=== PATIENT | female | born 1955 | race Caucasian/White ===

== ENCOUNTER → 2020-05-26 08:26 | Outpatient (CLI) | payer MEDICAID, SELFPAY ==
--- NOTE | 2020-05-26 08:33 | XR_ITS ---
PROCEDURE: XR ANKLE WT BEARING RT MIN 3V CLINICAL INDICATION: pain COMPARISON: CR ANKL3 ANKLE-LT-3 VIEWS from 01/09/2016 CR ANKL3 ANKLE-LT-3 VIEWS from 01/24/2016 CR ANKL3 ANKLE-LT-3 VIEWS from 02/21/2016 FINDINGS: There is minimal hypertrophic changes at the distal tibia and fibula. The ankle mortise is preserved. The talar dome has an unremarkable appearance. IMPRESSION: Minimal degenerative changes, no acute finding Dictated by: George Hilliard MD 05/26/2020 16:43 George Hillaird MD in [facility] 05/26/2020 16:43
--- NOTE | 2020-05-26 08:33 | XR_ITS ---
PROCEDURE: XR FOOT WT BEARING LT 3V CLINICAL INDICATION: pain COMPARISON: No exams were available for comparison FINDINGS: Status post ankle replacement. Mild osteoarthritic changes are present at the talonavicular joint with borderline pes planus. No fracture or dislocation. No lytic or blastic change IMPRESSION: Status post ankle replacement. Borderline pes planus with mild osteoarthritis of the talonavicular joint Dictated by: George Hilliard MD 05/26/2020 16:43 George Hilliard MD in [facility] 05/26/2020 16:43
--- NOTE | 2020-05-26 08:33 | XR_ITS ---
PROCEDURE: XR ANKLE WT BEARING LT MIN 3V CLINICAL INDICATION: pain Follow-up surgery COMPARISON: CR ANKL3 ANKLE-LT-3 VIEWS from 01/09/2016 CR ANKL3 ANKLE-LT-3 VIEWS from 01/24/2016 CR ANKL3 ANKLE-LT-3 VIEWS from 02/21/2016 CR ANKL3 ANKLE-LT-3 VIEWS from 03/27/2016 FINDINGS: Status post ankle replacement with good alignment. Medial bone plate is present at the distal tibia. There is some bowing of the 2nd from cortical screw within the bone plate. This is not significantly changed. No screw fracture is evident. There are degenerative changes at the distal tib fib region and at the ankle joint at the distal fibula and tibia. Bony hypertrophy is present the distal tibia head appears somewhat greater compared to 03/27/2016. IMPRESSION: Status post ankle replacement with creasing bony hypertrophy with good alignment. Dictated by: George Hilliard MD 05/26/2020 16:42 George Hilliard MD in [facility] 05/26/2020 16:42
== END ==
PROVIDERS: PCP Nurse Practitioner Family; Visit Provider Podiatrist
DX: M25.572 Pain in left ankle and joints of left foot (principal); M25.571 Pain in right ankle and joints of right foot
CPT/HCPCS: 73610; 73630

== ENCOUNTER → 2020-06-01 07:15 | Outpatient (CLI) | payer MEDICAID, SELFPAY ==
--- NOTE | 2020-06-01 07:16 | CT_ITS ---
PROCEDURE: CT ANKLE LT WO CON CLINICAL HISTORY: SPV for total ankle replacement COMPARISON: CR XR ANKLE WT BEARING LT MIN 3V from 05/26/2020 TECHNIQUE: Axial images obtained with sagittal and coronal reformats. All CT scans at the facility use one or more dose reduction, viz: automated exposure control, ma/kV adjustment per patient size (including targeted exams where dose is matched to indication, i.e. head), or iterative reconstruction technique. FINDINGS: The axial images are obtained from the distal femur through the foot. Artifact is present from metallic hardware at the ankle. There has been and ankle replacement with a metallic prosthesis at the tibial plafond and at the talar dome. Anterior bone plate is present at the distal tibia. There is fusion of the tibial talar joint distally. Osteoarthritic changes are present at the talofibular region and at the medial malleolar talar region. There are mild osteoarthritic changes of the knee. Mild osteoarthritic changes are present at the posterior and anterior subtalar joint as well as the talonavicular joint. No acute fracture or dislocation. No bony destructive process. No obvious soft tissue mass. IMPRESSION: Good alignment status post ankle replacement with osteoarthritic changes of the ankle and foot as described above Dictated by: George Hilliard MD 06/02/2020 08:56 George Hilliard MD in [place] 06/02/2020 08:56
--- NOTE | 2020-06-01 07:57 | XR_ITS ---
PROCEDURE: XR DEXA AXIAL SKELETON CLINICAL HISTORY: eval. bone density COMPARISON: No exams were available for comparison FINDINGS: The right hip BMD is 0.692 with a T-score of -1.4. The left hip BMD is 0.741 with a T-score of -1.0. The lumbar spine BMD is 1.169 with a T-score of 1.1. IMPRESSION: This patient is considered osteopenic according to the World Health Organization criteria. Bone density is between 10 and 25 percent below young normal. Fracture risk is moderate. Treatment is advised. Based on these results a follow-up exam is recommended in 2 year. Dictated by: George Hilliard MD 06/01/2020 19:29 George Hilliard MD in [place] 06/02/2020 07:29
--- NOTE | 2020-06-01 08:00 | US_ITS ---
APPROVED REPORT Exam Type: Lower Extremity Segmental Pressures Beer Coil Cleaner: Lily Mccrary RVT Indications DM,PT IS PRE-OP FOR HARDWARE REPLACEMENT RT ANKLE Risk Factors Hypertension Diabetes History of Smoking Pressures/Indices Right Indices Left Indices Brachial 166.00 mmHg Brachial 159.00 mmHg Low Thigh 173.00 mmHg 1.04 Low Thigh 145.00 mmHg 0.87 Calf 168.00 mmHg 1.01 Calf 190.00 mmHg 1.14 Ankle(PT) 185.00 mmHg 1.11 Ankle(PT) 195.00 mmHg 1.17 Ankle(DP) 151.00 mmHg 0.91 Ankle(DP) 168.00 mmHg 1.01 Digit 106.00 mmHg 0.64 Digit 154.00 mmHg 0.93 Findings RT EDITH:1.11 LT EDITH:1.17 RT TBI:0.64 LT TBI:0.93 NORMAL PULSES BILATERAL NORMAL WAVEFORMS BILATERAL Conclusion RT EDITH:1.11 LT EDITH:1.17 RT TBI:0.64 LT TBI:0.93 NORMAL PULSES BILATERAL NORMAL WAVEFORMS BILATERAL Normal appearing resting noninvasive lower extremity arterial study. Electronically signed by : George Hilliard MD 06/01/2020 16:52:01
== END ==
PROVIDERS: PCP Nurse Practitioner Family; Visit Provider Podiatrist
DX: M19.072 Primary osteoarthritis, left ankle and foot (principal); Z96.662 Presence of left artificial ankle joint; Z96.9 Presence of functional implant, unspecified; M85.80 Other specified disorders of bone density and structure, unspecified site; R09.89 Other specified symptoms and signs involving the circulatory and respiratory systems
CPT/HCPCS: 73700; 77080; 93923

== ENCOUNTER → 2020-06-01 07:47 | Outpatient (CLI) | payer MEDICAID, SELFPAY ==
[2020-06-01 08:29] LABS: Basophils # 0.1 K/mm3 (0-0.2); Basophils % 0.8 % (0.1-2.0); Eosinophils # 0.2 K/mm3 (0.0-0.4); Eosinophils % 3.1 % (0.1-12.0); Hematocrit 42.5 % (37.0-47.0); Hemoglobin 13.2 g/dL (12.2-16.2); Lymphocytes % 31.3 % (10-50); Mean Corpuscular Volume 90.2 fl (81-99); Mean Platelet Volume 7.4 fl (7.4-10.4); Monocytes # 0.3 K/mm3 (0.1-1.0); Monocytes % 4.1 % (1.7-9.3); Neutrophils # 3.8 K/mm3 (1.8-7.8); Neutrophils % 60.6 % (37.0-80.0); Platelet Count 430 K/mm3 (142-424); Red Blood Count 4.71 M/mm3 (4.20-5.40); Red Cell Distribution Width 13.3 % (11.5-17.5); White Blood Count 6.3 K/mm3 (4.8-10.8)
[2020-06-01 09:00] LABS: Erythrocyte Sedimentation Rate 10 mm/hr (0-30)
[2020-06-01 10:03] LABS: Hemoglobin A1C 7.3 % (4.0-6.0)
[2020-06-01 12:19] LABS: Chloride 100 mmol/L (98-107); Sodium 138 mmol/L (136-145)
[2020-06-01 12:20] LABS: Potassium 5.5 mmoL/L (3.5-5.1)
[2020-06-01 12:22] LABS: Alanine Aminotransferase 35 U/L (12-78); Albumin Level 4.3 g/dl (3.5-5.0); Albumin/Globulin Ratio 1.7 (1.1-1.8); Alkaline Phosphatase 98 U/L (38-126); Anion Gap 17.5 mEq/L (5-15); Aspartate Amino Transferase 28 U/L (14-36); Bilirubin,Total 0.4 mg/dl (0.2-1.3); Blood Urea Nitrogen 16 mg/dl (7-17); Carbon Dioxide 26 mmol/L (22.0-30.0); Estimated Glomerular Filt Rate 85 ml/min (>60); GFR (African American) 103 ML/MIN (>60); Globulin 2.6 g/dL (1.3-3.2); Total Protein,Serum 6.9 g/dl (6.3-8.2)
[2020-06-01 12:23] LABS: Calcium 10.2 mg/dl (8.4-10.2); Glucose 243 mg/dl (74-100)
[2020-06-01 12:28] LABS: C-Reactive Protein 2.9 mg/L (0-4)
[2020-06-07 09:59] LABS: 1,25 Dihydroxy Vitamin D 32 pg/mL (.); 1,25-Dihydroxy, Vitamin D-2 <10 pg/mL (.); 1,25-Dihydroxy, Vitamin D-3 32 pg/mL (.)
== END ==
PROVIDERS: Visit Provider Podiatrist
DX: M19.072 Primary osteoarthritis, left ankle and foot (principal); R73.03 Prediabetes
CPT/HCPCS: 36415; 80053; 82652; 83036; 85025; 85651; 86140

== ENCOUNTER → 2020-07-19 08:03 | Outpatient (CLI) | payer MEDICAID, SELFPAY ==
--- NOTE | 2020-07-19 08:06 | XR_ITS ---
PROCEDURE: XR CHEST 2V CLINICAL HISTORY: preop testing..htn..copd COMPARISON: CR CXR CHEST(2 VIEWS-NOT PORTABLE) from 11/23/2015 FINDINGS: The cardiomediastinal silhouette and pulmonary vascularity are within normal limits. The lungs are clear without infiltrates, suspicious nodules, or pleural effusions. Nodular density is present projecting over the T9-T10 interspace on the lateral view not readily apparent on the previous study. This could be due to granuloma which is not well demonstrated previously. May be in the left lower lobe. Follow-up may confirm. No acute bony abnormalities. IMPRESSION: No acute finding. Possible left lower lobe granuloma which may be confirmed with follow-up. Dictated by: George Hilliard MD 07/19/2020 17:04 George Hilliard MD in [place] 07/19/2020 17:04
--- NOTE | 2020-07-19 08:41 | ECG_ITS ---
APPROVED REPORT Exam: Resting ECG HR:47 bpm ECG Measurements Heart Rate 47 AXES NM 170 P 19 QRSd 86 QRS 17 QT 442 T 42 QTc 391 Conclusion Marked sinus bradycardia Abnormal ECG Electronically signed by : Zbigniew Canela, 07/20/2020 07:25:54
[2020-07-19 09:31] LABS: Basophils # 0.1 K/mm3 (0-0.2); Basophils % 1.1 % (0.1-2.0); Eosinophils # 0.2 K/mm3 (0.0-0.4); Hematocrit 45.1 % (37.0-47.0); Hemoglobin 14.5 g/dL (12.2-16.2); Lymphocytes % 33.3 % (10-50); Mean Corpuscular HGB Conc 32.2 g/dL (31.8-35.4); Mean Corpuscular Hemoglobin 28.1 pg (27.0-31.2); Mean Platelet Volume 7.9 fl (7.4-10.4); Monocytes # 0.3 K/mm3 (0.1-1.0); Monocytes % 4.5 % (1.7-9.3); Neutrophils # 3.5 K/mm3 (1.8-7.8); Neutrophils % 58.1 % (37.0-80.0); Platelet Count 521 K/mm3 (142-424); Red Blood Count 5.18 M/mm3 (4.20-5.40); Red Cell Distribution Width 13.6 % (11.5-17.5); White Blood Count 6.1 K/mm3 (4.8-10.8)
[2020-07-19 11:34] LABS: Alanine Aminotransferase 30 U/L (12-78); Albumin Level 4.9 g/dl (3.5-5.0); Albumin/Globulin Ratio 1.8 (1.1-1.8); Alkaline Phosphatase 115 U/L (38-126); Anion Gap 18.5 mEq/L (5-15); Aspartate Amino Transferase 27 U/L (14-36); Bilirubin,Total 0.4 mg/dl (0.2-1.3); Blood Urea Nitrogen 16 mg/dl (7-17); Calcium 10.3 mg/dl (8.4-10.2); Carbon Dioxide 26 mmol/L (22.0-30.0); Chloride 101 mmol/L (98-107); Estimated Glomerular Filt Rate 101 ml/min (>60); GFR (African American) 123 ML/MIN (>60); Globulin 2.8 g/dL (1.3-3.2); Glucose 148 mg/dl (74-100); Potassium 4.5 mmoL/L (3.5-5.1); Sodium 141 mmol/L (136-145); Total Protein,Serum 7.7 g/dl (6.3-8.2)
[2020-07-21 14:03] LABS: T4 (Thyroxine) 6.3 ug/dl (5.53-11.0); Triiodothryronine (T3) Uptake 32 % (23.5-40.5)
[2020-07-21 14:16] LABS: Thyroid Stimulating Hormone 3.33 uIU/mL (0.465-4.68)
== END ==
PROVIDERS: PCP Nurse Practitioner Family; Visit Provider Podiatrist
DX: Z01.818 Encounter for other preprocedural examination (principal); M19.072 Primary osteoarthritis, left ankle and foot
CPT/HCPCS: 36415; 71046; 80053; 83036; 84436; 84443; 84479; 85025; 93005

== ENCOUNTER → 2020-07-26 09:23 | Outpatient (CLI) | payer MEDICAID, SELFPAY ==
--- NOTE | 2020-07-26 09:49 | ECG_ITS ---
APPROVED REPORT Exam: Resting ECG HR:75 bpm ECG Measurements Heart Rate 75 AXES TX 168 P 21 QRSd 78 QRS 29 QT 366 T 54 QTc 408 Conclusion Normal sinus rhythm Normal ECG Electronically signed by : Zbigniew Canela, 07/26/2020 19:48:17
== END ==
PROVIDERS: PCP Nurse Practitioner Family; Visit Provider Podiatrist
DX: R00.1 Bradycardia, unspecified (principal)
CPT/HCPCS: 93005

== ENCOUNTER → 2020-08-01 09:10 | Outpatient (CLI) | payer MEDICAID, SELFPAY ==
[2020-08-01 10:58] LABS: Coronavirus 19 IgG Antibody Negative (Negative); Coronavirus 19 IgM Antibody Negative (Negative)
== END ==
PROVIDERS: Visit Provider Podiatrist
DX: Z01.818 Encounter for other preprocedural examination (principal); M19.072 Primary osteoarthritis, left ankle and foot
CPT/HCPCS: 36415; 86328

== ENCOUNTER 2020-08-03 07:01 | Observation (INO) | payer MEDICAID, SELFPAY ==
[2020-08-02 09:45] VITALS: BMI 30.2
[2020-08-03] VITALS (20 sets, daily range): BP systolic 136–158; BP diastolic 55–94; PULSE 73–88; RESP 16–20; TEMP 36.2–43; O2SAT 90–97; BMI 33.3
--- NOTE | 2020-08-03 06:53 | P.PN_ITS ---
[facility] Anesthesia Checklist - Patient Identification Patient Identification: Arm Band, Verbal (Name & ) - Structural Data Admitted From: Home Planned Operative Procedure/s: ankle replacement Consent for Planned Operative Procedure(s) Verified: Yes Verified Documents: History and Physical - NPO Status Verified Time NPO: 00:00 - Chart Verification Results Verified: CBC, BMP - Additional verifications Patient : No Anesthesia Reactions: No Hx Blood Transfusions: No Blood Transfusion Reaction: No Cephalosporin Allergy: No Previous Colonoscopy: No - Cardiovascular Assessment Heart Sounds: S1 & S2 Pulse Strength: Baseline Pulse Rhythm: Regular Peripheral Edema: No - Airway Assessment C-Spine Mobility Assessed: Yes TMJ Mobility Assessed: Yes Dentition: Good Dentition - Neurological Assessment Level of Consciousness: Awake, Alert, Appropriate Hx Seizures: No Numbness or tingling in extremities: No - Anesthesia Plan Anesthesia Risk discussed: Yes Anesthesia Plan: Verified ASA Class: III Anesthesia Type: General w/block [facility] History I have reviewed the patient's past medical history: Yes Medical History: Reports:: Chronic Obstructive Pulmonary Disease (COPD), Diabetes Mellitus Type 2, Hypertension Denies:: Cancer, Diabetes Mellitus Type 1, Internal Pacemaker, MRSA, Seizures *Have you ever received a pneumonia vaccine?: No *Have you received a flu vaccine this season?: Yes Other Medical History: Denies: Blood Transfusion Reaction Anesthesia experience/problems:: none Other Surgeries: Yes: Other. No: Pacemaker Amputation: No Fractures: No - *Social History Last grade of school completed: Some college Smoking Status: Never smoker Alcohol Intake: current Alcohol Intake Frequency:: holidays/special occasions only Substance Use Type: other *Occupational Status:: retired Housing: house Household Members: spouse *Travel in the last 8 weeks: None Family Hx:: No significant family history
[2020-08-03 06:58] LABS: POC Glucose,Bedside 125 (70-110)
--- NOTE | 2020-08-03 07:15 | HMH.HP ---
*Admission Date: 08/03/20 *Chief complaint: Left ankle osteoarthritis *History of present illness: Mrs. Ware is a 64-year-old female who for admission for post op left ankle surgery. Patient sustained a left ankle fracture dislocation in 2005 which was surgically repaired via ORIF. She reports pain and stiffness for years after the fracture. Patient then had hardware removal with ankle scope in July 2015. Patient had left ankle implant arthroplasty with ORIF medial malleolus fracture 12/12/[address] Guy Day. Since then patient c/o pain and failed conservative care leading to total ankle arthroplasty revision today. PCP-Ely Kumar. Plan: admission, consult workday consultant MD for medical mgmt (DM, HTN, COPD), physical therapy in am for gait training prior to discharge home tomorrow. [facility] History I have reviewed the patient's past medical history: Yes Medical History: Reports:: Chronic Obstructive Pulmonary Disease (COPD), Diabetes Mellitus Type 2, Hypertension Denies:: Cancer, Diabetes Mellitus Type 1, Internal Pacemaker, MRSA, Seizures *Have you ever received a pneumonia vaccine?: No *Have you received a flu vaccine this season?: Yes Other Medical History: Denies: Blood Transfusion Reaction Anesthesia experience/problems:: none Other Surgeries: Yes: Other (2005-LA ORIF, 2014-LA Scope, 2015-LA TAR). No: Pacemaker Amputation: No Fractures: No - *Social History Last grade of school completed: Some college Smoking Status: Never smoker Alcohol Intake: current Alcohol Intake Frequency:: holidays/special occasions only Substance Use Type: other *Occupational Status:: retired Housing: house Household Members: spouse *Travel in the last 8 weeks: None Family Hx:: No significant family history Review of Systems - Review of Systems Review of systems:: pertinent systems reviewed and negative unless documented below - Constitutional Denies chills, Denies fever(s) - Eyes Denies blind spots, Denies blurry vision - ENT Denies abnormal hearing, Denies dry mouth - *Cardiovascular Denies chest pain, Denies shortness of breath - *Respiratory Denies chest congestion, Denies shortness of breath - *Gastrointestinal Denies abdominal pain, Denies nausea, Denies vomiting - *Genitourinary Denies abnormal periods - *Musculoskeletal Reports joint pain, Reports joint swelling - Integumentary/Breasts Denies hair loss, Denies wounds - *Neurologic Denies abnormal walking, Denies numbness, Denies tingling/numbness/burning sensations - Psychiatric Denies abnormal sleep pattern - Endocrine Denies cold intolerance - Hematologic/Lymphatic Denies easy bleeding - Allergic/Immunologic Reports GI upset with certain foods Meds Home Medications Medication Instructions Recorded Confirmed Type levothyroxine 25 mcg capsule 25 mcg PO DAILY 05/26/20 08/03/20 History losartan 25 mg tablet 25 mg PO DAILY 05/26/20 08/03/20 History metformin 500 mg tablet 500 mg PO DAILY 05/26/20 08/03/20 History ondansetron 4 mg disintegrating 4 mg PO Q6H PRN 14 Days #30 tab 08/01/20 08/03/20 Rx tablet oxycodone-acetaminophen 7.5 mg-325 1 tab PO Q4-6H PRN 7 Days #30 tab 08/01/20 08/03/20 Rx mg tablet Ergocalciferol (Vitamin D2) 50,000 unit PO WEEKLY 08/02/20 08/03/20 History [Drisdol] Enoxaparin Sodium [Lovenox 40 mg SQ DAILY 08/03/20 08/03/20 History 40mg/0.4mL syringe] Ibuprofen 800 mg PO BID 08/03/20 08/03/20 History atenoloL [Atenolol 25mg Tab] 25 mg PO DAILY 08/03/20 08/03/20 History Allergies Allergy/AdvReac Type Severity Reaction Status Date / Time Penicillins Allergy Unknown I-HIVES Verified 08/02/20 09:51 tetanus and diphtheria Allergy Unknown I-HIVES Verified 08/02/20 09:51 toxoids [tetanus & diphtheria toxoids] Exam Vital signs and Labs for Last 24 Hours: Temp Pulse Resp BP Pulse Ox 97.2 F L 88 18 153/88 H 97 08/03/20 06:26 08/03/20 06:26 08/03/20 06:26 08/03/20 06:26 08/03/20 06
[2020-08-03 07:55] LABS: Microscopic,Cath URINE MICROSCOPIC (MICROSCOPIC)
[2020-08-03 07:59] LABS: Appearance,Urine/Cath CLEAR (Clear); Bilirubin,Cath Negative (Negative); Blood, Urine/Cath TRACE-I (Negative); Color,Urine/Cath YELLOW (Yellow); Glucose,Urine/Cath (UA) Negative (Negative); Ketones,Urine/Cath Negative (Negative); Leukocyte Esterase,Cath Negative (Negative); Nitrate,Cath Negative (Negative); PH,Urine/Cath 5.5 (5.0-8.5); Protein,Urine/Cath Negative (Negative); Specific Gravity, Urine/Cath >= 1.030 (1.005-1.030); Urobilinogen,Cath 0.2 EU/dl (0.2)
[2020-08-03 09:28] LABS: Squamous Epithelial Ur./Cath Occasional #/hpf (0-5)
--- NOTE | 2020-08-03 14:09 | HMH.PHAINT ---
HOME MEDICATION RECONCILIATION COMPLETED USING LIST FROM HOME PHARMACY
--- NOTE | 2020-08-03 14:52 | SUR.OPER ---
1100-family updated 1430-family updated
--- NOTE | 2020-08-03 16:15 | XR_ITS ---
PROCEDURE: XR ANKLE LT 2V CLINICAL INDICATION: TOTAL ANKLE ARTHROPLASTY COMPARISON: CR ANKL3 ANKLE-LT-3 VIEWS from 02/21/2016 CR ANKL3 ANKLE-LT-3 VIEWS from 03/27/2016 CR XR ANKLE WT BEARING LT MIN 3V from 05/26/2020 CR XR ANKLE WT BEARING RT MIN 3V from 05/26/2020 FINDINGS: Status post hardware removal with total ankle arthroplasty placement with good alignment. Fluoroscopy time: 4 minutes 7 seconds IMPRESSION: Good alignment status post total ankle arthroplasty Dictated by: George Hilliard MD 08/03/2020 17:50 George Hilliard MD in [place] 08/03/2020 17:50
--- NOTE | 2020-08-03 16:48 | XR_ITS ---
PROCEDURE: XR ANKLE LT MIN 3V CLINICAL INDICATION: s/p left total ankle arthroplasty Follow-up surgery COMPARISON: CR ANKL3 ANKLE-LT-3 VIEWS from 03/27/2016 CR XR ANKLE WT BEARING LT MIN 3V from 05/26/2020 CR XR ANKLE WT BEARING RT MIN 3V from 05/26/2020 CR XR FOOT LT MIN 3V from 08/03/2020 CR XR ANKLE LT 2V from 08/03/2020 FINDINGS: S/p total left ankle arthroplasty with good alignment. There has been osteotomy of the talus with talar dome prosthesis placed for the arthroplasty. There are 2 anchor screws along the medial and lateral malleolar region. The medial bone plate has been removed of the tibia. There is an overlying cast in place. IMPRESSION: Good alignment status post total ankle arthroplasty placement Dictated by: George Hilliard MD 08/03/2020 17:48 George Hilliard MD in [place] 08/03/2020 17:48
--- NOTE | 2020-08-03 17:10 | P.PN_ITS ---
[facility] Anesthesia Record Part I Intake, IV Amount: 3,000 Estimated blood loss (mL): 50 Urine output (mL): 500 Blood Pressure: 150/75 SaO2: 94 Pulse Rate: 87 Respiratory Rate: 16 Temperature: 98.4 F Patient is:: Drowsy, Stable Stable to PACU at:: 17:05
--- NOTE | 2020-08-03 17:14 | HMH.OPNOTE ---
Date of procedure: 08/03/20 Pre-op Diagnosis:: 1. Left ankle osteoarthritis 2. Left ankle retained orthopedic hardware 3. Left ankle synovitis 4. Left ankle instability 5. Left ankle scar tissue, FHL tear 6. Left ankle equinus 7. Left ankle lipoma Post-op Diagnosis:: Same Procedure performed:: 1. Left total ankle replacement 2. Left ankle hardware removal 3. Left ankle synovectomy 4. Excision of left ankle lipoma 5. Left tendo Achilles lengthening 6. Left autograft bone harvest, application of bone graft 7. Left open repair deltoid ligament 8. Left open repair anterior talofibular ligament (lateral ankle lig stabilization) 9. Left debridement of FHL, EHL tendons 10. Left application of tissue graft 11. Left application of posterior splint Surgeon:: Araceli Arredondo DPM Service Tech/Welder(s):: Chyna uBrgos RETAIL BANKING MANAGER:: Chester Paz Anesthesia: GETA, regional (Left popliteal, saph nerve block) Estimated blood loss (mL): 50 Clinical Note:: See H&P. 64F who had left ankle fracture ORIF in 2005, ankle scope in 2014 with hardware removal and total ankle replacement in 2016. Patient had continued pain and swelling with progressively worsening deformity. At this point she is has failed all conservative care including: Modification of shoe gear, modification of activity, ice, elevation, NSAIDs, stretching, immobilization, bracing/strapping, physical/compression therapy, injection therapy and has had multiple surgeries. Patient has no history of infection with the left ankle surgeries. She reports no skin/wound complications. Discussed overall health. Her PCP is Patti Kumar, will need medical clearance. We had a long discussion about diabetes and peripheral neuropathy. Patient has no current signs or history of neuropathy. We discussed her prior history with the bone fracture and healing. I explained surgical options would include ankle fusion, poly-exchange with hypertrophic bone debridement and revisional TAR. Given her lifestyle, her preference would be to revise the total ankle replacement. I explained based on the CT scan we would have to do aggressive bony debridement because of the bony overgrowth. We discussed complications with surgery and her co-morbidities including infection, failure of implant, subsidence which could lead to further surgeries, loss of limb or . We discussed use of DVT ppx x 6 weeks. Risk factors: obesity, immobilization. All risks and benefits were discussed including but not limited to: damage to blood vessels and nerves, bleeding, infection, wound complications, delayed, mal or non-union of bone, post-traumatic arthritis, need for further surgery, need for removal of implant, prolonged swelling of the extremity, prolonged pain, CRPS/RSD, DVT, and anesthetic complications including . No guarantees were given. All questions fully answered. The patient verbalized understanding and agreed to proceed with surgery. Consent was obtained. Necessary labs and pre-op testing ordered: CBC, BMP, EKG, CXR, covid. Pt was given a Rx for Zofran, Motrin, Lovenox, Percocet 7.5/325 #30. Patient has a fracture boot, polar pack, crutches and walker at home. Plan for inpatient stay after surgery, with PT session for gait training prior to discharge. PCP-Patti Kumar granted medical clearance. Operative findings:: Significant left ankle synovitis and scar tissue noted. Retained left total ankle replacement with bony overgrowth anteriorly covering the entire implant and poly-. No medial or lateral gutter due to scar tissue and bony overgrowth and hypertrophy. There were some retained Ethibond suture noted to the deltoid ligament medially. The FHL tendon was entrapped in scar tissue and posterior ankle bone. Retained orthopedic hardware, plate with 4 screws to the medial tibia. Broken proximal screw. Ligamentous instability, partial deltoid ligament tear. Anterior talofibular ligament attenuation with ankle instability. Lipoma noted to the medial left ankle
[2020-08-03 17:26] LABS: POC Glucose,Bedside 172 (70-110)
--- NOTE | 2020-08-03 17:58 | PC.NURSE ---
1713-radiology at bedside 1721-checked fsbs with results of 172, no further orders at this time, pt drinking sips of water w/out difficulty at this time, denies pain or nausea 1733-detailed report called to HASMUKH Vang 1737-pt transported to 2nd floor room 203 via hospital bed w/wilfrido rails up per HASMUKH Triplett and [facility] and left in care of HASMUKH Vang with bed locked in lowest position, vss, family at bedside, pt stable
--- NOTE | 2020-08-03 18:28 | HMH.ACPN2 ---
Internal Medicine - PN: Subj *Date: 08/03/20 *Time: 18:28 Interval history: FAMILY MEDICINE: 64-year-old white female with total ankle revision today by Dr. Quintero. Family medicine consult was requested for admission and follow-up. The chart has been reviewed. Original ankle injury was 16 years ago with an open reduction internal fixation. There have been subsequent surgery since leading up to this ankle revision. She has a history of hypertension, type 2 diabetes mellitus, and hypothyroidism. Medications were reviewed with the patient. She states atenolol has been recently discontinued due to bradycardia. She is allergic to penicillin. Her primary care provider is Ely Kumar APRN. Exam Vital signs and Labs for Last 24 Hours: Temp Pulse Resp BP Pulse Ox 98.2 F 79 16 156/77 H 97 08/03/20 17:35 08/03/20 17:35 08/03/20 17:35 08/03/20 17:35 08/03/20 17:35 Laboratory Results - last 24 hr 08/03/20 06:36: POC Glucose 125 H 08/03/20 07:30: Urine Color Yellow, Urine Appearance Clear, Urine pH 5.5, Ur Specific Maskell >= 1.030, Urine Protein Negative, Urine Glucose (UA) Negative, Urine Ketones Negative, Urine Blood Trace-i, Urine Nitrate Negative, Urine Bilirubin Negative, Urine Urobilinogen 0.2, Ur Leukocyte Esterase Negative, Urine RBC 3-5, Urine WBC 3-5, Ur Squamous Epith Cells Occasional 08/03/20 17:17: POC Glucose 172 H I & O for Last 24 hours: Intake & Output 08/01/20 08/02/20 08/03/20 08/04/20 11:59 11:59 11:59 11:59 Intake Total 3075 / 3075 Output Total 50 / 50 Balance 3025 / 3025 Weight 199 lb - Constitutional mild distress (Postop) - *Routine HEENT Exam Head: Present: normocephalic Eye: Present: PERRL ENT: Present: mucous membranes moist - *Routine Neck Exam Absent: JVD, carotid bruit - *Routine Respiratory Exam Present: CTA bilaterally, rales (Only a few bibasilar rales.) - *Routine Cardiovascular Exam Present: RRR - *Routine Abdominal Exam Present: soft. Absent: tenderness - *Routine Extremities Exam Present: normal capillary refill (Of the left foot.) - *Routine Neurological Exam Present: alert, oriented X3 Assessment and Plan (1) Status post left ankle joint replacement Status: Acute Category: Surgical Code(s): Z96.662 - Presence of left artificial ankle joint (2) Hyperglycemia due to type 2 diabetes mellitus Status: Acute Category: Medical Code(s): E11.65 - Type 2 diabetes mellitus with hyperglycemia (3) COPD (chronic obstructive pulmonary disease) Status: Acute Category: Medical Code(s): J44.9 - Chronic obstructive pulmonary disease, unspecified (4) Hypertension Status: Acute Category: Medical Code(s): I10 - Essential (primary) hypertension (5) History of left ankle joint replacement Status: Chronic Category: Surgical Code(s): Z96.662 - Presence of left artificial ankle joint (6) Obesity (BMI 30.0-34.9) Status: Chronic Category: Medical Code(s): E66.9 - Obesity, unspecified (7) Osteoarthritis of left ankle and foot Status: Chronic Category: Medical Code(s): M19.072 - Primary osteoarthritis, left ankle and foot (8) Retained orthopedic hardware Status: Chronic Category: Medical Code(s): Z96.9 - Presence of functional implant, unspecified - Assessment and plan all Dx Assessment and Plan for all problems:: Orders placed for medications and for blood work. I ordered TSH and A1c. Thank you for the consult. I will follow the patient with you.
--- NOTE | 2020-08-03 18:47 | HMH.DCSUM ---
General - General Admission date:: 08/03/20 Discharge date: 08/04/20 HPI HPI: Mrs. Ware is a 64-year-old female who for admission for post op left ankle surgery. Patient sustained a left ankle fracture dislocation in 2005 which was surgically repaired via ORIF. She reports pain and stiffness for years after the fracture. Patient then had hardware removal with ankle scope in July 2015. Patient had left ankle implant arthroplasty with ORIF medial malleolus fracture 12/12/[address] Guy Day. Since then patient c/o pain and failed conservative care leading to total ankle arthroplasty revision today. PCP-Ely Kumar. Plan: admission, consult carbon setter MD for medical mgmt (DM, HTN, COPD), physical therapy in am for gait training prior to discharge home. Patient is resting comfortably this am. She reports a nausea with food, headache and some arm soreness, likely from prolonged anesthesia and arm positioning. She denies F/C, SOB/CP, vomiting. She has polar pack and SCD intact and is using the incentive spirometer. Cortez will be pulled. Hospital Course Hospital Course: Patient was admitted for post op pain control and medical mgmt after a surgery with prolonged anesthesia time. She was stable with vital signs and neurovascular status intact. Objective Vital signs: Temp Pulse Resp BP Pulse Ox 98.2 F 79 16 156/77 H 97 08/03/20 17:35 08/03/20 17:35 08/03/20 17:35 08/03/20 17:35 08/03/20 17:35 no acute distress, obese - *Routine HEENT Exam Head: Present: normocephalic Eye: Present: EOMI ENT: Present: mucous membranes moist - *Routine Neck Exam Present: supple - Routine Chest/Breast/Axilla Exam Chest wall: Absent: tenderness - *Routine Respiratory Exam Present: CTA bilaterally. Absent: respiratory distress - *Routine Cardiovascular Exam Present: RRR - *Routine Abdominal Exam Present: soft, obese - *Routine Rectal Exam Patient deferred: visual exam - *Routine Exam Patient deferred: external exam - *Routine Extremities Exam Present: pulses intact, normal capillary refill, MONIKA stockings. Absent: calf tenderness - *Routine Skin Exam Present: intact, warm - *Routine Neurological Exam Present: alert, oriented X3, moving all extremities - Routine Psychiatric Exam Present: normal affect - Detailed Lower Extremity Exam Comments: Left lower extremity dressing and splint cast clean dry and intact. Leg elevated on pillows. Cryo cuff/polar pack applied behind left knee. Pulses intact, capillary fill time within normal limits. Motor function and light touch sensation decreased secondary to regional nerve block. No calf or thigh pain noted bilaterally. SCD intact to the right lower extremity. Results Completed studies during hospitalization [Text1]: X-rays left foot and ankle 3 views taken 08/03/20, evaluated by myself. Report noted. FINDINGS: S/p total left ankle arthroplasty with good alignment. There has been osteotomy of the talus with talar dome prosthesis placed for the arthroplasty. There are 2 anchor screws along the medial and lateral malleolar region. The medial bone plate has been removed of the tibia. There is an overlying cast in place. IMPRESSION: Good alignment status post total ankle arthroplasty placement. Labs on day of discharge: Labs from last 24 hours 08/03/20 08/03/20 08/03/20 17:17 07:30 06:36 POC Glucose 172 H 125 H Urine Color Yellow Urine Appearance Clear Urine pH 5.5 Ur Specific [place] >= 1.030 Urine Protein Negative Urine Glucose (UA) Negative Urine Ketones Negative Urine Blood Trace-i Urine Nitrate Negative Urine Bilirubin Negative Urine Urobilinogen 0.2 Ur Leukocyte Esterase Negative Urine RBC 3-5 Urine WBC 3-5 Ur Squamous Epith Cells Occasional DS: Diagnosis - Discharge Diagnosis (1) Status post left ankle joint replacement Status: Acute (2) Hyperglycemia due to type
[2020-08-03 19:07] LABS: Basophils % 0.1 % (0.1-2.0); Eosinophils # 0.1 K/mm3 (0.0-0.4); Eosinophils % 0.5 % (0.1-12.0); Hemoglobin 11.7 g/dL (12.2-16.2); Lymphocytes # 1.1 K/mm3 (0.7-4.5); Lymphocytes % 5.5 % (10-50); Mean Corpuscular HGB Conc 32.4 g/dL (31.8-35.4); Mean Corpuscular Hemoglobin 28.2 pg (27.0-31.2); Monocytes # 0.5 K/mm3 (0.1-1.0); Monocytes % 2.6 % (1.7-9.3); Neutrophils # 17.6 K/mm3 (1.8-7.8); Neutrophils % 91.2 % (37.0-80.0); Platelet Count 457 K/mm3 (142-424); Red Blood Count 4.13 M/mm3 (4.20-5.40); Red Cell Distribution Width 13.7 % (11.5-17.5); White Blood Count 19.3 K/mm3 (4.8-10.8)
[2020-08-03 19:08] LABS: MANUAL DIFFERENTIAL MANUAL DIFFERENTIAL (MANUAL DIFF)
[2020-08-03 19:09] LABS: Chloride 103 mmol/L (98-107); Potassium 4.5 mmoL/L (3.5-5.1); Sodium 134 mmol/L (136-145)
[2020-08-03 19:11] LABS: Alanine Aminotransferase 37 U/L (12-78); Aspartate Amino Transferase 39 U/L (14-36); Blood Urea Nitrogen 19 mg/dl (7-17); Creatinine Clearance Estimated 83 mL/min (50-200); Estimated Glomerular Filt Rate 85 ml/min (>60); GFR (African American) 103 ML/MIN (>60)
[2020-08-03 19:12] LABS: Albumin Level 3.8 g/dl (3.5-5.0); Albumin/Globulin Ratio 1.6 (1.1-1.8); Alkaline Phosphatase 82 U/L (38-126); Anion Gap 11.5 mEq/L (5-15); Bilirubin,Total 0.4 mg/dl (0.2-1.3); Calcium 8.6 mg/dl (8.4-10.2); Carbon Dioxide 24 mmol/L (22.0-30.0); Globulin 2.4 g/dL (1.3-3.2); Glucose 218 mg/dl (74-100); Total Protein,Serum 6.2 g/dl (6.3-8.2)
[2020-08-03 19:25] LABS: Hemoglobin A1C 7.2 % (4.0-6.0)
[2020-08-03 19:43] LABS: Thyroid Stimulating Hormone 2.35 uIU/mL (0.465-4.68)
[2020-08-03 19:51] LABS: Lymphocytes % 7 % (10-50); Monocytes % 3 % (2-9); Neutrophils % 90 % (42-76); Platelet Estimate Slight Increase; RBC Morphology Normal; Total Cells Counted 100
[2020-08-03 22:03] LABS: POC Glucose,Bedside 174 (70-110)
[2020-08-04 00:25] VITALS: BP 146/82; PULSE 80; RESP 18; TEMP 36.7; O2SAT 96
[2020-08-04 04:00] VITALS: BP 117/54; PULSE 86; RESP 18; TEMP 37.1; O2SAT 93
[2020-08-04 05:24] VITALS: BMI 31.1
[2020-08-04 05:41] LABS: POC Glucose,Bedside 150 (70-110)
--- NOTE | 2020-08-04 05:57 | PC.NURSE ---
pt rested well t/o shift, IS at bedside and O2 sats on room air have remained 93-97%, pt has had no complaints of pain in the ankle, only a headache, was treated with tylenol per OCT for headache, pt did state that her ankle is starting to burn this morning, pt was educated on the medication she had available for pain, and she refused everything, pt educated on not letting the pain get ahead of her, states that she only took oral pain medication last time, percocet per OCT offered to her and pt refused, polar pack remains in place, SCUD to right leg
[2020-08-04 07:54] LABS: Basophils % 0.2 % (0.1-2.0); Eosinophils % 0.2 % (0.1-12.0); Hematocrit 32.6 % (37.0-47.0); Hemoglobin 10.8 g/dL (12.2-16.2); Lymphocytes # 1.7 K/mm3 (0.7-4.5); Lymphocytes % 13.2 % (10-50); Mean Corpuscular HGB Conc 33.1 g/dL (31.8-35.4); Mean Corpuscular Hemoglobin 28.4 pg (27.0-31.2); Mean Corpuscular Volume 85.7 fl (81-99); Mean Platelet Volume 7.8 fl (7.4-10.4); Monocytes # 0.9 K/mm3 (0.1-1.0); Monocytes % 7.2 % (1.7-9.3); Neutrophils % 79.2 % (37.0-80.0); Platelet Count 399 K/mm3 (142-424); Red Blood Count 3.81 M/mm3 (4.20-5.40); Red Cell Distribution Width 13.8 % (11.5-17.5); White Blood Count 12.6 K/mm3 (4.8-10.8)
[2020-08-04 08:00] VITALS: BP 118/60; PULSE 82; RESP 18; TEMP 36.8; O2SAT 95
[2020-08-04 08:01] LABS: Chloride 103 mmol/L (98-107); Sodium 136 mmol/L (136-145)
[2020-08-04 08:04] LABS: Alanine Aminotransferase 40 U/L (12-78); Albumin Level 3.7 g/dl (3.5-5.0); Albumin/Globulin Ratio 1.6 (1.1-1.8); Alkaline Phosphatase 73 U/L (38-126); Aspartate Amino Transferase 58 U/L (14-36); Bilirubin,Total 0.4 mg/dl (0.2-1.3); Blood Urea Nitrogen 18 mg/dl (7-17); Calcium 8.4 mg/dl (8.4-10.2); Carbon Dioxide 25 mmol/L (22.0-30.0); Creatinine Clearance Estimated 86 mL/min (50-200); Estimated Glomerular Filt Rate 73 ml/min (>60); GFR (African American) 88 ML/MIN (>60); Globulin 2.3 g/dL (1.3-3.2); Glucose 130 mg/dl (74-100)
--- NOTE | 2020-08-04 09:42 | HMH.PTEV ---
Physical Therapy Evaluation Rehab PT IP Evaluation Start: 08/03/20 16:21 Freq: ONCE Status: Active Protocol: Document 08/04/20 09:39 PHOSCOTT (Rec: 08/04/20 09:42 PHORNE [id number]) Subjective/History History History 64 yowf adm to [facility] for L TAA revision. She lives at home with and is primarily independent with all activity and ambulation. Subjective Subjective Pt reports she still has no feeling from the knee distally due to her nerve block. Rehab PT IP Eval Objective Appearance Patient Behavior Appropriate Patient Orientation Person,Place,Time Difficulty following instructions none Speech Pattern Clear Ambulation Patient Able to Ambulate Yes Ambulation Observation IP General Gait Pattern Observation Decrease Weight Bear (L) Ambulation Distance (feet) 20 Ambulation Assistive Device Rolling Walker Ambulation Ability Contact Guard/Hand Hold Balance Ability to Arise Able, w/o using arms Sitting Balance Steady, safe Standing Balance Narrow stance w/o support Dynamic Sitting Balance Ability Normal Dynamic Standing Balance Ability Good Transfers Bed Transfer Ability Supervision/Stand by Chair Transfer Ability Supervision/Stand by Sit to Stand Chair Transfer Ability Supervision/Stand by ROM All Extremities PT ROM Status WFL Abnormal ROM Comment except L ankle NT MMT All Extremities PT MMT WFL Abnormal MMT Grade except L ankle NT Rehab PT IP prob,goals,plan Problems Date of Evaluation: 08/04/20 Discharge Plan PT Discharge Plan Pt is appropriate to return home once medically stable, recommend outpatient PT once medically ready. G -code Required No Eval Complexity Eval Charge Codes 29794 - Moderate Complexity PHYSICIAN CERTIFICATION: I certify the specified therapy services for Trina Ware are required, authorized, and reviewed every 30 days.
--- NOTE | 2020-08-04 09:44 | HMH.ANESII ---
[facility] Anesthesia Record Part II Discharge Time: 17:35 Destination: Medical Surgical Department PACU nurse assessment reviewed?: Yes Patient Condition:: Good Anesthesia Complications:: None Swallowing reflex intact?: Yes Cyanosis?: No Blood Pressure: 156/77 Pulse Rate: 79 Temperature: 98.2 F Mental Status: Alert & Oriented Pain level:: 0 Nausea and/or vomitting:: None Intake, IV Amount: 0
[2020-08-04 09:46] VITALS: BP 156/77; PULSE 79; TEMP 36.8
--- NOTE | 2020-08-04 10:04 | SW/DCPLANNER ---
Addendum entered by Lidia Mesa 08/04/20 11:48: Leisa from [facility] has stated that rolling walker will be delivered to patient today. Original Note: This patient will need a rolling walker at time of discharge. Patient request that walker be ordered from [facility]. I will fax patient information/order for walker today. Patient will discharge home later today.
--- NOTE | 2020-08-04 10:36 | HMH.ACPN2 ---
Internal Medicine - PN: Yamilet *Date: 08/04/20 *Time: 10:36 Interval history: FAMILY MEDICINE: She feels better this morning. Apparently discharge is planned. Labs reviewed. Exam Vital signs and Labs for Last 24 Hours: Temp Pulse Resp BP Pulse Ox 98.2 F 79 18 156/77 H 95 08/04/20 09:46 08/04/20 09:46 08/04/20 08:00 08/04/20 09:46 08/04/20 08:00 Laboratory Results - last 24 hr 08/03/20 17:17: POC Glucose 172 H 08/03/20 18:57: Hemoglobin A1c 7.2 H 08/03/20 18:57: Sodium 134 L, Potassium 4.5, Chloride 103, Carbon Dioxide 24, Anion Gap 11.5, BUN 19 H, Creatinine 0.70, Estimated Creat Clear 83, Estimated GFR 85, Est GFR ( Amer) 103, Glucose 218 H, Calcium 8.6, Total Bilirubin 0.4, AST 39 H, ALT 37, Alkaline Phosphatase 82, Total Protein 6.2 L, Albumin 3.8, Globulin 2.4, Albumin/Globulin Ratio 1.6, TSH 2.35 08/03/20 18:57: WBC 19.3 H, RBC 4.13 L, Hgb 11.7 L, Hct 36.0 L, MCV 87.0, MCH 28.2, MCHC 32.4, RDW 13.7, Plt Count 457 H, MPV 8.0, Neut % (Auto) 91.2 H, Lymph % (Auto) 5.5 L, [place] % (Auto) 2.6, Eos % (Auto) 0.5, Baso % (Auto) 0.1, Neut # (Auto) 17.6 H, Lymph # (Auto) 1.1, [place] # (Auto) 0.5, Eos # (Auto) 0.1, Baso # (Auto) 0.0, Total Counted 100, Neutrophils % (Manual) 90 H, Lymphocytes % (Manual) 7 L, Monocytes % (Manual) 3, Platelet Estimate Slight increase, RBC Morphology Normal 08/03/20 21:30: POC Glucose 174 H 08/04/20 05:03: POC Glucose 150 H 08/04/20 07:28: WBC 12.6 H D, RBC 3.81 L, Hgb 10.8 L, Hct 32.6 L, MCV 85.7, MCH 28.4, MCHC 33.1, RDW 13.8, Plt Count 399, MPV 7.8, Neut % (Auto) 79.2, Lymph % (Auto) 13.2, [place] % (Auto) 7.2, Eos % (Auto) 0.2, Baso % (Auto) 0.2, Neut # (Auto) 10.0 H, Lymph # (Auto) 1.7, [place] # (Auto) 0.9, Eos # (Auto) 0.0, Baso # (Auto) 0.0 08/04/20 07:28: Sodium 136, Potassium 4.0, Chloride 103, Carbon Dioxide 25, Anion Gap 12.0, BUN 18 H, Creatinine 0.80, Estimated Creat Clear 86, Estimated GFR 73, Est GFR ( Amer) 88, Glucose 130 H D, Calcium 8.4, Total Bilirubin 0.4, AST 58 H D, ALT 40, Alkaline Phosphatase 73, Total Protein 6.0 L, Albumin 3.7, Globulin 2.3, Albumin/Globulin Ratio 1.6 I & O for Last 24 hours: Intake & Output 08/01/20 08/02/20 08/03/20 08/04/20 11:59 11:59 11:59 11:59 Intake Total 4529 / 4529 Output Total 950 / 950 Balance 3579 / 3579 Weight 199 lb 219 lb 7 oz 205 lb 3 oz - Constitutional no acute distress - *Routine HEENT Exam Head: Present: normocephalic Eye: Present: PERRL ENT: Present: mucous membranes moist - *Routine Respiratory Exam Present: decreased breath sounds, rales (There are a few basilar rales) - *Routine Cardiovascular Exam Present: RRR - *Routine Extremities Exam Present: edema (1+ edema on the right. Circulation is intact on the left still in splint and dressings.) - *Routine Neurological Exam Present: alert, oriented X3 Assessment and Plan (1) Status post left ankle joint replacement Status: Acute Category: Surgical Code(s): Z96.662 - Presence of left artificial ankle joint (2) Hyperglycemia due to type 2 diabetes mellitus Status: Acute Category: Medical Code(s): E11.65 - Type 2 diabetes mellitus with hyperglycemia (3) COPD (chronic obstructive pulmonary disease) Status: Acute Category: Medical Code(s): J44.9 - Chronic obstructive pulmonary disease, unspecified (4) Hypertension Status: Acute Category: Medical Code(s): I10 - Essential (primary) hypertension (5) History of left ankle joint replacement Status: Chronic Category: Surgical Code(s): Z96.662 - Presence of left artificial ankle joint (6) Obesity (BMI 30.0-34.9) Status: Chronic Category: Medical Code(s): E66.9 - Obesity, unspecified (7) Osteoarthritis of left ankle and foot Status: Chronic Category: Medical Code(s): M19.072 - Primary osteoarthritis, left ankle and foot (8) Retained orthopedic hardware Status: Chronic Category: Medical Code(s): Z96.9 - Presence of functional implant, unspecif
--- NOTE | 2020-08-04 11:40 | PC.NURSE ---
Pt will need a rolling walker rather than a cane due to gait/ mobility issues.
[2020-08-04 11:43] LABS: POC Glucose,Bedside 116 (70-110)
== END 2020-08-04 13:14 | disposition home or self-care (01) ==
LOC: 2ND 07:01
PROVIDERS: Family Medicine; Nurse Practitioner; Admitting Provider Podiatrist; PCP Nurse Practitioner Family; Visit Provider Podiatrist
PROC: (CPT 27703; principal; 2020-08-03 07:30)
DX: T84.84XA Pain due to internal orthopedic prosthetic devices, implants and grafts, initial encounter (principal); T84.018A Broken internal joint prosthesis, other site, initial encounter; M25.372 Other instability, left ankle; R26.2 Difficulty in walking, not elsewhere classified; M19.072 Primary osteoarthritis, left ankle and foot; E11.65 Type 2 diabetes mellitus with hyperglycemia; Z79.84 Long term (current) use of oral hypoglycemic drugs; I10 Essential (primary) hypertension; J44.9 Chronic obstructive pulmonary disease, unspecified; E03.9 Hypothyroidism, unspecified; Z88.0 Allergy status to penicillin; Z88.7 Allergy status to serum and vaccine; M85.89 Other specified disorders of bone density and structure, multiple sites; M24.572 Contracture, left ankle
CPT/HCPCS: 27703; 27625; 27698; C5275; 36415; 73600; 73610; 73630; 76000; 80053; 81001; 82962; 83036; 84443; 85007; 85025; 96374; 97162; C1713; C1762; C1776; G0378; J2405; J2710; Q4211

== ENCOUNTER → 2020-08-09 18:37 | Outpatient (CLI) | payer MEDICAID, SELFPAY | PROVIDERS: Visit Provider Podiatrist | DX: S90.522A Blister (nonthermal), left ankle, initial encounter (principal); Z98.890 Other specified postprocedural states | CPT/HCPCS: 87070; 87205 ==

== ENCOUNTER → 2020-09-06 08:13 | Outpatient (CLI) | payer OTHER, SELFPAY ==
--- NOTE | 2020-09-06 08:20 | XR_ITS ---
PROCEDURE: XR ANKLE WT BEARING LT MIN 3V CLINICAL INDICATION: postop views Follow-up ankle replacement COMPARISON: CR XR ANKLE WT BEARING RT MIN 3V from 05/26/2020 CR XR ANKLE WT BEARING LT MIN 3V from 05/26/2020 CR XR ANKLE LT MIN 3V from 08/03/2020 CR XR ANKLE LT 2V from 08/03/2020 FINDINGS: Post ankle replacement. Distal tibial and talar prosthesis remain in place with good alignment. There are anchor screws at the medial and lateral malleolar region. The cast has been removed. There is faint calcification along the anterior and posterior aspect of the distal tibia within the soft tissues. IMPRESSION: Good alignment status post ankle replacement Dictated by: George Hilliard MD 09/06/2020 09:19 George Hilliard MD in [place] 09/06/2020 09:19
== END ==
PROVIDERS: PCP Nurse Practitioner Family; Visit Provider Orthopaedic Surgery
DX: Z98.890 Other specified postprocedural states (principal); M19.072 Primary osteoarthritis, left ankle and foot; Z96.662 Presence of left artificial ankle joint
CPT/HCPCS: 73610

== ENCOUNTER → 2020-11-24 09:25 | Outpatient (CLI) | payer OTHER, SELFPAY ==
--- NOTE | 2020-11-24 09:31 | XR_ITS ---
PROCEDURE: XR ANKLE WT BEARING LT MIN 3V CLINICAL INDICATION: POST-OP Follow-up surgery COMPARISON: CR XR ANKLE WT BEARING RT MIN 3V from 05/26/2020 CR XR ANKLE LT MIN 3V from 08/03/2020 CR XR ANKLE LT 2V from 08/03/2020 CR XR ANKLE WT BEARING LT MIN 3V from 09/06/2020 FINDINGS: Status post ankle joint replacement. There is good alignment. [place] screws are present within the medial and lateral malleolar region. IMPRESSION: Overall no change with good alignment status post ankle joint replacement Dictated by: George Hilliard MD 11/24/2020 11:38 George Hilliard MD in [place] 11/24/2020 11:38
== END ==
PROVIDERS: PCP Nurse Practitioner Family; Visit Provider Podiatrist
DX: Z98.890 Other specified postprocedural states (principal)
CPT/HCPCS: 73610

== ENCOUNTER 2020-12-15 08:00 | Outpatient (RCR) | payer OTHER, SELFPAY ==
--- NOTE | 2020-09-14 09:44 | HMH.PTOPEV ---
PT Outpatient Evaluation Rehab PT Outpatient Evaluation Start: 09/14/20 09:27 Freq: Status: Active Protocol: Document 09/14/20 09:28 KAREN (Rec: 09/14/20 09:44 KAREN [id number]) Electronically Signed By Cale Dixon, PT 09/14/20 09:28 Outpatient Therapy Subjective History Subjective History Patient is a 64 year old female presenting to outpatient PT with reports of L foot/ankle pain S/P L total ankle replacement performed (6 weeks S/P). Patient reports hx of chronic L ankle pain for approx 2 years. Most recent surgery was a revision of L total ankle replacement performed approximately 2 years ago per patient report. Patient is currently NWB. Comorbidities include hx of hypothyroidism, HTN, prediabetic, and L TAA. Chief Complaint Pain,Spasms,Stiff,Swelling, Paresthesia,Weakness Symptom Type Ache,Shooting Symptoms Relieved By Rest/Positioning,OTC Meds, Prescription Meds Prior Functional Limitations Housework,Standing,Walking, Stairs,Balance Current Functional Limitations Housework,Standing,Walking, Stairs,Balance Symptom Description Intermittent Level of pain today (0-10) 0 Pain scale - at its best (0-10) 0 Pain scale - at its worst (0-10) 8 Ankle/Foot Eval Assistive Device Ambulation Assistive Device Rolling Walker Palpation Tenderness left Ankle/Foot Palpation Findings Tenderness Ankle/Foot Palpation Overall Comment Med/lat malleolus; peroneal mm ; ant tib mm; achilles all 3/4 ROM Ankle/Foot Dorsiflexion w/Knee Extended -25 Active Range Motion (degrees) Ankle/Foot Dorsiflexion w/Knee Extended -18 Passive Range (degrees) Ankle/Foot Plantar Flexion Active Range 48 of Motion (degrees) Ankle/Foot Plantar Flexion Passive Range 55 of Motion (degrees) Ankle/Foot Eversion Active Range of 8 Motion (degrees) Ankle/Foot Eversion Passive Range of 12 Motion (degrees) Ankle/Foot Inversion Active Range of 8 Motion (degrees) Ankle/Foot Inversion Passive Range of 20 Motion (degrees) Ankle/Foot ROM Limitations Soft Tissue Tightness, Contracture Great Toe ROM Reason Not Measured Within Functional Li
--- NOTE | 2020-10-14 10:59 | HMH.RHREAS ---
Rehab Reassessment Rehab OP Re-assessment Start: 10/14/20 10:48 Freq: Status: Active Protocol: Document 10/14/20 10:48 KAREN (Rec: 10/14/20 10:58 KAREN [id number]) Electronically Signed By Cale Dixon, PT 10/14/20 10:48 Rehab Re-assessment Subjective Subjective Patient reports 50% functional improvment since start of care. Objective Objective Notes AROM: DF -22;PF WNL; INV 10; EV 10 PROM: DF -5; PF WNL; INV 15; EV 13 MMT: DF 4-/5; PF 4+/5; INV 4/5 , EV 4/5 Neuro: WNL Pain: 5/10 today; 8/10 at worst Assessment Progress Assessment Progressing as Expected Assessment Notes Patient continues to have significant functional limitations with all standing/ ambulatory activities. Patient goals met None Goals Not Met All Revised Goals NA Plan Plan Continue with current POC. Frequency of Therapy 2/week Duration of therapy 4 weeks Time and Billing Re-Eval Time 15 Re-Eval Billing Units 1 PHYSICIAN CERTIFICATION: I certify the specified therapy services for Trina Ware are required, authorized, and reviewed every 30 days.
== END 2020-12-15 08:05 | disposition home or self-care (01) ==
LOC: PT 08:00
PROVIDERS: PCP Nurse Practitioner Family; Visit Provider Podiatrist
DX: Z96.662 Presence of left artificial ankle joint (principal); M25.572 Pain in left ankle and joints of left foot
CPT/HCPCS: 97010; 97014; 97016; 97110; 97112; 97140; 97163; 97164; 97760; G0283

== ENCOUNTER → 2021-01-19 08:18 | Outpatient (CLI) | payer OTHER, SELFPAY ==
--- NOTE | 2021-01-19 08:28 | XR_ITS ---
PROCEDURE: XR ANKLE WT BEARING LT MIN 3V CLINICAL INDICATION: postop views Follow-up ankle replacement COMPARISON: CR XR ANKLE LT MIN 3V from 08/03/2020 CR XR ANKLE LT 2V from 08/03/2020 CR XR ANKLE WT BEARING LT MIN 3V from 09/06/2020 CR XR ANKLE WT BEARING LT MIN 3V from 11/24/2020 FINDINGS: S/p total ankle replacement. The tibial prosthesis and talar dome prosthesis remain in good position. There is good alignment with no obvious hardware anomalies. IMPRESSION: No change, good alignment status post ankle replacement Dictated by: George Hilliard MD 01/19/2021 11:12 George Hilliard MD in [place] 01/19/2021 11:12
== END ==
PROVIDERS: PCP Nurse Practitioner Family; Visit Provider Podiatrist
DX: M25.572 Pain in left ankle and joints of left foot (principal); Z96.662 Presence of left artificial ankle joint
CPT/HCPCS: 73610

== ENCOUNTER → 2021-07-18 08:00 | Outpatient (CLI) | payer OTHER, SELFPAY ==
--- NOTE | 2021-07-18 08:09 | XR_ITS ---
PROCEDURE: XR ANKLE WT BEARING LT MIN 3V CLINICAL INDICATION: postop views COMPARISON: CR XR ANKLE LT MIN 3V from 08/03/2020 CR XR ANKLE WT BEARING LT MIN 3V from 09/06/2020 CR XR ANKLE WT BEARING LT MIN 3V from 11/24/2020 CR XR ANKLE WT BEARING LT MIN 3V from 01/19/2021 FINDINGS: S/p total ankle replacement with good alignment the. No hardware malfunction apparent. IMPRESSION: Good alignment status post total ankle replacement. No significant change. Dictated by: George Hilliard MD 07/19/2021 08:44 George Hilliard MD in [place] 07/19/2021 08:44
== END ==
PROVIDERS: PCP Nurse Practitioner Family; Visit Provider Podiatrist
DX: M25.572 Pain in left ankle and joints of left foot (principal); Z96.662 Presence of left artificial ankle joint
CPT/HCPCS: 73610

== ENCOUNTER → 2021-12-26 08:24 | Outpatient (CLI) | payer SELFPAY ==
--- NOTE | 2021-12-26 08:28 | XR_ITS ---
FINAL REPORT CLINICAL HISTORY: L Total ankle replacement. COMPARISON: July 18, 2021 FINDINGS: LEFT ANKLE: Three views were obtained. There is a left ankle prosthesis with tendon anchors in the medial and lateral malleoli. There is prominent soft tissue swelling about the ankle. There are multiple well corticated ossific densities inferior to the medial malleolus probably sequela of prior surgery. IMPRESSION: Postoperative changes as described. No significant change from prior. Reviewed, Interpreted and Dictated by Renny Jaimes MD Transcribed by Gilles Keating Authenticated by Renny Jaimes MD on 12/26/2021 10:19:13 AM [facility]
== END ==
PROVIDERS: PCP Nurse Practitioner Family; Visit Provider Podiatrist
DX: M19.072 Primary osteoarthritis, left ankle and foot (principal); Z98.890 Other specified postprocedural states
CPT/HCPCS: 73610

== ENCOUNTER → 2022-06-26 08:17 | Outpatient (CLI) | payer SELFPAY ==
--- NOTE | 2022-06-26 08:26 | XR_ITS ---
FINAL REPORT CLINICAL HISTORY: postop views COMPARISON: 12/26/2021 FINDINGS: LEFT ANKLE 3 views of the left ankle were obtained. There are postoperative changes again seen from ankle arthroplasty. There are moderate degenerative changes. There are multiple chronic calcifications adjacent to the medial talus. Bony alignment is stable. There is no soft tissue abnormality. IMPRESSION: Postoperative changes as above, stable. Reviewed, Interpreted and Dictated by Isael Gomes III, MD Transcribed by Muriel Villagomez Authenticated and [facility] [place]
== END ==
PROVIDERS: PCP Family Medicine; Visit Provider Podiatrist
DX: M25.572 Pain in left ankle and joints of left foot (principal); Z96.662 Presence of left artificial ankle joint; Z98.890 Other specified postprocedural states
CPT/HCPCS: 73610

== ENCOUNTER → 2023-01-21 06:30 | Outpatient (CLI) | payer MEDICARE, SELFPAY ==
[2023-01-21 17:16] LABS: Thyroid Stimulating Hormone 2.43 uIU/mL (0.465-4.68)
[2023-01-21 17:23] LABS: Hemoglobin A1C 8.1 % (4.0-6.0)
== END ==
PROVIDERS: PCP Family Medicine; Visit Provider Family Medicine
DX: E11.9 Type 2 diabetes mellitus without complications (principal); E03.9 Hypothyroidism, unspecified; Z79.84 Long term (current) use of oral hypoglycemic drugs
CPT/HCPCS: 83036; 84443

== ENCOUNTER → 2023-01-29 13:07 | Outpatient (CLI) | payer MEDICARE, SELFPAY ==
--- NOTE | 2023-01-29 13:08 | MM_ITS ---
PROCEDURE INFORMATION: Exam: Bilateral Screening 3D Mammography Exam date and time: 01/29/2023 1:13 PM Age: 67 years old Clinical indication: Baseline. No family history of breast cancer. TECHNIQUE: Imaging protocol: Bilateral Screening tomosynthesis and 2D mammography including computer-aided detection (CAD) when performed. COMPARISON: No relevant prior studies available. If prior mammograms are provided, I am happy to add an addendum. FINDINGS: MAMMOGRAPHY: Breast composition: The breasts are almost entirely fatty. Mass: Two adjacent masses in the left upper outer quadrant, approximately 2-3 o'clock, middle 3rd - the larger mass measures up to 1.2 cm and the smaller measures up to 0.7 cm. Both appears slightly lobulated with low-density components in the larger mass. These appears superficial on the tomosynthesis sequences, but not shown related to the skin. Architectural distortion: None. Calcifications: No suspicious calcifications. Asymmetric density: None. Skin thickening: None. Axillary adenopathy: None. IMPRESSION: Patient will be recalled for further evaluation of masses in the left breast which are superfical. Advise clinical correlation to the left breast and if a skin finding is present, an oval marker could be placed with repeat CC projection. If no skin finding noted, advise left diagnostic spot compression in the CC and MLO projections as well as left sonography. ASSESSMENT: BI-RADS Category 0: Incomplete- Need Additional Imaging Evaluation and/or Prior Mammograms for Comparison
== END ==
PROVIDERS: PCP Family Medicine; Visit Provider Family Medicine
DX: Z12.31 Encounter for screening mammogram for malignant neoplasm of breast (principal)
CPT/HCPCS: 77063; 77067

== ENCOUNTER → 2023-02-05 14:42 | Outpatient (CLI) | payer MEDICARE, SELFPAY ==
--- NOTE | 2023-02-05 14:42 | MM_ITS ---
PROCEDURE INFORMATION: Exam: US Left Breast, Complete MG Left Diagnostic Breast Tomosynthesis Exam date and time: 02/05/2023 2:51 PM Age: 67 years old Clinical indication: Patient recalled on the basis of a screening mammogram for further evaluation; Left breast; masses TECHNIQUE: Imaging protocol: Complete ultrasound of all four quadrants of the left breast and the retroareolar regions, including ultrasound of the axilla when performed. Left Diagnostic tomosynthesis and 2D mammography including computer-aided detection (CAD) when performed. Unilateral or bilateral exam. COMPARISON: MG MM DIG MAMM DX UNILAT LT CAD 02/05/2023 2:36 PM FINDINGS: MAMMOGRAPHY: Digital diagnostic spot compression views of the anterior left 3 o'clock axis demonstrates 2 questionable persistent masses versus islands of normal fibroglandular structures. ULTRASOUND: Sonographic images of the left breast including the retroareolar region, all 4 quadrants and the axilla do not demonstrate any solid or cystic masses. Cursors were placed over normal fibroglandular structures in the 4 o'clock axis 4 cm from the nipple as well as an incidental 0.8 cm subcutaneous lipoma in the 5 o'clock axis 4 cm from the nipple. No architectural distortion or acoustical shadowing. No skin thickening or axillary adenopathy. Review of mammogram dated 01/29/2023 suggest there is benign fat admixed within the areas of nodular asymmetry identified. IMPRESSION: Probably benign nodular asymmetry in the left anterolateral breast only well seen on mammography. A six-month follow-up diagnostic left mammogram is recommended to ensure stability of the pattern identified ASSESSMENT: BI-RADS Category 3: Probably benign
--- NOTE | 2023-02-05 14:46 | XR_ITS ---
FINAL REPORT CLINICAL HISTORY: post op COMPARISON: 06/26/2022 FINDINGS: Three views of the left ankle show surgical changes of an ankle arthroplasty. The hardware is stable in appearance and unchanged since the prior exam of June 2022. No evidence of fracture or dislocation is seen. IMPRESSION: Left ankle arthroplasty, hardware stable since prior exam of June 2022. Reviewed, Interpreted and Dictated by Carina Harkins MD Transcribed by Chapis Morejon Authenticated and [facility]
== END ==
PROVIDERS: PCP Family Medicine; Visit Provider Family Medicine
DX: R92.8 Other abnormal and inconclusive findings on diagnostic imaging of breast (principal); Z96.662 Presence of left artificial ankle joint; M25.572 Pain in left ankle and joints of left foot
CPT/HCPCS: 73610; 76641; 77061; 77065; G0279

== ENCOUNTER → 2023-05-27 01:10 | Outpatient (CLI) | payer MEDICARE, SELFPAY ==
[2023-05-27 16:23] LABS: Basophils # 0.1 K/mm3 (0-0.2); Basophils % 0.7 % (0.1-2.0); Eosinophils # 0.3 K/mm3 (0.0-0.4); Eosinophils % 3.9 % (0.1-12.0); Hemoglobin 13.6 g/dL (12.2-16.2); Lymphocytes # 2.4 K/mm3 (0.7-4.5); Lymphocytes % 28.1 % (10-50); Mean Corpuscular HGB Conc 30.8 g/dL (31.8-35.4); Mean Corpuscular Volume 87.6 fl (81-99); Mean Platelet Volume 8.5 fl (7.4-10.4); Monocytes # 0.5 K/mm3 (0.1-1.0); Monocytes % 5.5 % (1.7-9.3); Neutrophils # 5.2 K/mm3 (1.8-7.8); Neutrophils % 61.8 % (37.0-80.0); Platelet Count 622 K/mm3 (142-424); Red Blood Count 5.02 M/mm3 (4.20-5.40); Red Cell Distribution Width 13.7 % (11.5-17.5); White Blood Count 8.4 K/mm3 (4.8-10.8)
[2023-05-27 16:31] LABS: Alanine Aminotransferase 34 U/L (12-78); Albumin Level 4.8 g/dl (3.5-5.0); Albumin/Globulin Ratio 1.5 (1.1-1.8); Alkaline Phosphatase 118 U/L (38-126); Anion Gap 15.6 mEq/L (5-15); Aspartate Amino Transferase 30 U/L (14-36); Bilirubin,Total 0.5 mg/dl (0.2-1.3); Blood Urea Nitrogen 22 mg/dl (7-17); Calcium 10.6 mg/dl (8.4-10.2); Carbon Dioxide 28 mmol/L (22.0-30.0); Chloride 101 mmol/L (98-107); Chol/HDL Ratio 3.3 (1-3.5); Cholesterol 144 mg/dl (140-200); Estimated Glomerular Filt Rate 84 ml/min (>60); GFR (African American) 102 ML/MIN (>60); Globulin 3.2 g/dL (1.3-3.2); Glucose 120 mg/dl (74-100); HDL Cholesterol 44 mg/dl (40-60); Potassium 5.6 mmoL/L (3.5-5.1); Sodium 139 mmol/L (136-145); Triglycerides 122 mg/dl (30-150); VLDL Cholesterol 24 mg/dL (0-40)
[2023-05-27 16:42] LABS: Direct LDL Cholesterol 69.86 mg/dL (100-129)
[2023-05-27 17:01] LABS: Thyroid Stimulating Hormone 1.87 uIU/mL (0.465-4.68)
[2023-05-28 10:32] LABS: Hemoglobin A1C 7.2 % (4.0-6.0)
== END ==
PROVIDERS: PCP Family Medicine; Visit Provider Family Medicine
DX: E03.9 Hypothyroidism, unspecified (principal); I10 Essential (primary) hypertension; E78.5 Hyperlipidemia, unspecified; E11.65 Type 2 diabetes mellitus with hyperglycemia; Z79.84 Long term (current) use of oral hypoglycemic drugs
CPT/HCPCS: 80053; 80061; 83036; 84443; 85025

== ENCOUNTER → 2023-07-11 09:22 | Outpatient (CLI) | payer MEDICARE, SELFPAY ==
--- NOTE | 2023-07-11 09:26 | XR_ITS ---
FINAL REPORT CLINICAL HISTORY: Left ankle pain, swelling COMPARISON: None FINDINGS: AP, oblique, and lateral views of the left ankle were obtained. There is no prior exam for comparison. Again seen are changes from tibiotalar joint replacement. The hardware appears intact. There is partial fusion of the distal tibia and fibula which appears unchanged. There are no acute fractures seen. There is degenerative disease of the hindfoot which appears stable. There is stable soft tissue edema. IMPRESSION: Stable postoperative and degenerative changes without acute osseous abnormality. Reviewed, Interpreted and Dictated by Angela Brady MD Transcribed by Valentina Ortega Authenticated and [facility]
== END ==
PROVIDERS: PCP Family Medicine; Visit Provider Podiatrist
DX: Z96.662 Presence of left artificial ankle joint (principal); M25.572 Pain in left ankle and joints of left foot
CPT/HCPCS: 73610

== ENCOUNTER 2023-12-16 11:08 | Outpatient (CLI) | payer MEDICARE, SELFPAY ==
[2023-12-16 17:27] LABS: Hemoglobin A1C 7.6 % (4.0-6.0)
== END 2023-12-16 23:59 ==
LOC: LAB.DROPOF 12-17 11:09
PROVIDERS: PCP Family Medicine; Visit Provider Family Medicine
DX: E11.9 Type 2 diabetes mellitus without complications (principal); Z79.84 Long term (current) use of oral hypoglycemic drugs
CPT/HCPCS: 83036

== ENCOUNTER 2023-12-24 13:26 | Outpatient (CLI) | payer MEDICARE, SELFPAY ==
--- NOTE | 2023-12-24 13:26 | MM_ITS ---
PROCEDURE INFORMATION: Exam: MG Bilateral Diagnostic Breast Tomosynthesis Exam date and time: 12/24/2023 1:16 PM Age: 68 years old Clinical indication: Short-term radiographic follow-up of Left breast; asymmetry TECHNIQUE: Imaging protocol: Bilateral Diagnostic tomosynthesis and 2D mammography including computer-aided detection (CAD) when performed. Unilateral or bilateral exam. COMPARISON: 1. MG MM DIG MAMM DX UNILAT LT CAD 02/05/2023 2:36 PM 2. MG MM DIG SCREENING MAMM BI W/CAD 01/29/2023 1:13 PM FINDINGS: MAMMOGRAPHY: Breast composition: There are scattered areas of fibroglandular density. Breast mammogram findings: There is no stellate mass, architectural distortion or suspicious microcalcifications in either breast to suggest malignancy. Stable nodular asymmetry in the anterior third of the left lateral breast. No skin thickening or axillary adenopathy. IMPRESSION: Stable probably benign nodular asymmetry in the left anterolateral breast compared to prior mammogram dated 02/05/2023. A six-month follow-up diagnostic left mammogram is recommended for continued close surveillance ASSESSMENT: BI-RADS Category 3: Probably benign.
== END 2023-12-24 23:59 | disposition home or self-care (01) ==
LOC: RAD 13:26
PROVIDERS: PCP Family Medicine; Visit Provider Family Medicine
DX: R92.8 Other abnormal and inconclusive findings on diagnostic imaging of breast (principal)
CPT/HCPCS: 77062; 77066; G0279

== ENCOUNTER 2024-02-18 07:32 | Outpatient (CLI) | payer MEDICARE, SELFPAY ==
--- NOTE | 2024-02-18 07:35 | XR_ITS ---
FINAL REPORT CLINICAL HISTORY: post left ankle replacement COMPARISON: 07/11/2023 FINDINGS: Three views of the left ankle show postoperative changes from left ankle arthroplasty. The hardware is unremarkable. There is no evidence of acute displaced fracture or dislocation of the visualized bony architecture. The joint spaces appear normal. IMPRESSION: No significant change Reviewed, Interpreted and Dictated by Carina Harkins MD Transcribed by Valentina Ortega Authenticated and [facility]
== END 2024-02-18 23:59 | disposition home or self-care (01) ==
LOC: RAD 07:33
PROVIDERS: PCP Family Medicine; Visit Provider Podiatrist
DX: Z96.662 Presence of left artificial ankle joint (principal); M25.572 Pain in left ankle and joints of left foot
CPT/HCPCS: 73610

== ENCOUNTER 2024-04-27 09:45 | Outpatient (CLI) | payer MEDICARE, SELFPAY ==
[2024-04-27 19:11] LABS: Hemoglobin A1C 7.2 % (4.0-6.0)
[2024-04-27 19:24] LABS: Alanine Aminotransferase 45 U/L (12-78); Albumin Level 4.1 g/dl (3.5-5.0); Albumin/Globulin Ratio 1.5 (1.1-1.8); Alkaline Phosphatase 98 U/L (38-126); Aspartate Amino Transferase 36 U/L (14-36); Bilirubin,Total 0.5 mg/dl (0.2-1.3); Blood Urea Nitrogen 20 mg/dl (7-17); Calcium 10.8 mg/dl (8.4-10.2); Chloride 104 mmol/L (98-107); Chol/HDL Ratio 3.2 (1-3.5); Cholesterol 128 mg/dl (140-200); Estimated Glomerular Filt Rate 100 ml/min (>60); GFR (African American) 121 ML/MIN (>60); Globulin 2.8 g/dL (1.3-3.2); Glucose 101 mg/dl (74-100); HDL Cholesterol 40 mg/dl (40-60); Potassium 5.8 mmoL/L (3.5-5.1); Sodium 138 mmol/L (136-145); Total Protein,Serum 6.9 g/dl (6.3-8.2); Triglycerides 124 mg/dl (30-150); VLDL Cholesterol 25 mg/dL (0-40)
[2024-04-27 19:35] LABS: Direct LDL Cholesterol 64.21 mg/dL (100-129)
[2024-04-27 22:42] LABS: Anion Gap 13.8 mEq/L (5-15); Carbon Dioxide 26 mmol/L (22.0-30.0)
== END 2024-04-27 23:59 | disposition home or self-care (01) ==
LOC: LAB.DROPOF 04-28 12:21
PROVIDERS: PCP Family Medicine; Visit Provider Family Medicine
DX: E78.5 Hyperlipidemia, unspecified (principal); E03.9 Hypothyroidism, unspecified; I10 Essential (primary) hypertension; E11.65 Type 2 diabetes mellitus with hyperglycemia; Z79.84 Long term (current) use of oral hypoglycemic drugs
CPT/HCPCS: 80053; 80061; 83036; 84443

== ENCOUNTER 2024-08-17 09:08 | Outpatient (CLI) | payer MEDICARE, SELFPAY ==
--- NOTE | 2024-08-17 09:17 | XR_ITS ---
FINAL REPORT CLINICAL HISTORY: Foot pain, yearly checkup for ankle replacement COMPARISON: 02/18/2024 FINDINGS: LEFT FOOT Three views of the left foot demonstrate no acute fracture or dislocation. Post arthroplasty changes are seen. Hardware is stable. The visualized joint spaces are normally aligned. The soft tissues are unremarkable. IMPRESSION: No acute bony abnormality. Reviewed, Interpreted and Dictated by Carina Harkins MD Transcribed by Caroline Gillespie Authenticated and [facility]
--- NOTE | 2024-08-17 09:17 | MM_ITS ---
PROCEDURE INFORMATION: Exam: MG Left Diagnostic Breast Tomosynthesis Exam date and time: 08/17/2024 9:34 AM Age: 68 years old Clinical indication: Short-term radiographic followup; Left breast lateral asymmetry TECHNIQUE: Imaging protocol: Left Diagnostic tomosynthesis and 2D mammography including computer-aided detection (CAD) when performed. Unilateral or bilateral exam. COMPARISON: 1. MG MM DIG MAMM BI DX W/CAD 12/24/2023 1:16 PM 2. MG MM DIG MAMM DX UNILAT LT CAD 02/05/2023 2:36 PM FINDINGS: MAMMOGRAPHY: Breast composition: There are scattered areas of fibroglandular density. Breast mammogram findings: Stable nodular subcentimeter tissue asymmetry in the middle third of the left lateral breast. There is no stellate mass, architectural distortion or suspicious microcalcifications to suggest malignancy. No skin thickening or axillary adenopathy. IMPRESSION: Stable probably benign subcentimeter nodular tissue asymmetry left approximate 3 o'clock axis compared to prior mammogram dated 02/05/2023. A six-month follow-up diagnostic bilateral mammogram is recommended to ensure long-term stability of the asymmetry as well as carbonated seen schedule ASSESSMENT: BI-RADS Category 3: Probably benign.
--- NOTE | 2024-08-17 09:17 | XR_ITS ---
FINAL REPORT CLINICAL HISTORY: Ankle pain, ankle replacement in 2019, yearly checkup COMPARISON: 02/18/2024 FINDINGS: LEFT ANKLE Three views demonstrate no acute fracture or dislocation. Post arthroplasty changes are seen. Hardware is stable. The visualized joint spaces are normally aligned. The soft tissues are unremarkable. IMPRESSION: No acute bony abnormality. Reviewed, Interpreted and Dictated by Carina Harkins MD Transcribed by Caroline Gillespie Authenticated and . [facility]
== END 2024-08-17 23:59 | disposition home or self-care (01) ==
PROVIDERS: PCP Family Medicine; Visit Provider Family Medicine
DX: M79.672 Pain in left foot (principal); M72.2 Plantar fascial fibromatosis; M19.072 Primary osteoarthritis, left ankle and foot; Z96.662 Presence of left artificial ankle joint; R92.8 Other abnormal and inconclusive findings on diagnostic imaging of breast
CPT/HCPCS: 73610; 73630; 77061; 77065; G0279

== ENCOUNTER 2025-01-29 11:46 | Outpatient (CLI) | payer MEDICARE, SELFPAY ==
--- NOTE | 2025-01-29 11:50 | XR_ITS ---
FINAL REPORT CLINICAL HISTORY: Post Operative, pain COMPARISON: 08/17/2024 FINDINGS: LEFT ANKLE Three views demonstrate a left ankle prosthesis. Tendon anchors are present in the medial and lateral malleoli. There is no acute fracture or dislocation. There is a large os trigonum measuring 2.1 cm. The visualized joint spaces are normally aligned. Moderate soft tissue edema is noted about the ankle. IMPRESSION: Extensive soft tissue edema. Ankle prosthesis and tendon anchors in place. Large os trigonum. Reviewed, Interpreted and Dictated by Renny Jaimes MD Transcribed by Valentina Ortega Authenticated and [facility]
--- NOTE | 2025-01-29 11:50 | XR_ITS ---
FINAL REPORT CLINICAL HISTORY: Post Operative, pain COMPARISON: 08/17/2024 FINDINGS: LEFT FOOT Three views of the left foot demonstrate no acute fracture or dislocation. The visualized joint spaces are normally aligned. The soft tissues are unremarkable. IMPRESSION: No acute bony abnormality. Reviewed, Interpreted and Dictated by Renny Jaimes MD Transcribed by Valentina Ortega Authenticated and [facility]
== END 2025-01-29 23:59 | disposition home or self-care (01) ==
LOC: RAD 11:47
PROVIDERS: PCP Family Medicine; Visit Provider Podiatrist
DX: M79.89 Other specified soft tissue disorders (principal); Q68.8 Other specified congenital musculoskeletal deformities; Z96.662 Presence of left artificial ankle joint
CPT/HCPCS: 73610; 73630

== ENCOUNTER 2025-02-15 08:50 | Outpatient (CLI) | payer MEDICARE, SELFPAY ==
[2025-02-15 17:35] LABS: Basophils # 0.1 K/mm3 (0-0.2); Basophils % 0.7 % (0.1-2.0); Eosinophils # 0.2 Kmm3 (0.0-0.4); Hematocrit 36.9 % (37.0-47.0); Hemoglobin 11.6 g/dL (12.2-16.2); Immature Granulocytes # 0.03 10^3uL; Immature Granulocytes % 0.4 %; Lymphocytes # 2.1 K/mm3 (0.7-4.5); Lymphocytes % 26.6 % (10-50); Mean Corpuscular HGB Conc 31.4 g/dL (31.8-35.4); Mean Corpuscular Volume 88.9 fl (81-99); Monocytes # 0.6 K/mm3 (0.1-1.0); Monocytes % 7.7 % (1.7-9.3); Neutrophils % 62.6 % (37.0-80.0); Nucleated Red Blood Cells # 0 10^3/uL; Nucleated Red Blood Cells % 0 %; Platelet Count 475 K/mm3 (142-424); Red Blood Count 4.15 M/mm3 (4.20-5.40); Red Cell Distribution Width 14.2 % (11.5-17.5); Red Cell Distribution Width-SD 45.9 fL
[2025-02-15 18:23] LABS: Alanine Aminotransferase 25 U/L (12-78); Albumin Level 4.5 g/dl (3.5-5.0); Albumin/Globulin Ratio 1.8 (1.1-1.8); Alkaline Phosphatase 90 U/L (38-126); Aspartate Amino Transferase 25 U/L (14-36); Bilirubin,Total 0.4 mg/dl (0.2-1.3); Blood Urea Nitrogen 18 mg/dl (7-17); Calcium 10.5 mg/dl (8.4-10.2); Carbon Dioxide 27 mmol/L (22.0-30.0); Chloride 104 mmol/L (98-107); Chol/HDL Ratio 3.2 (1-3.5); Cholesterol 150 mg/dl (140-200); Estimated Glomerular Filt Rate 83 ml/min (>60); GFR (African American) 101 ML/MIN (>60); Globulin 2.5 g/dL (1.3-3.2); Glucose 102 mg/dl (74-100); HDL Cholesterol 47 mg/dl (40-60); Sodium 138 mmol/L (136-145); Triglycerides 99 mg/dl (30-150); VLDL Cholesterol 20 mg/dL (0-40)
[2025-02-15 18:32] LABS: Hemoglobin A1C 7.1 % (4.0-6.0)
[2025-02-15 18:34] LABS: Direct LDL Cholesterol 72.05 mg/dL (100-129)
[2025-02-15 18:39] LABS: Free Thyroxine Index 2.2 ug/dL (5.93-13.13); T4 (Thyroxine) 6.6 ug/dl (5.53-11.0); Triiodothryronine (T3) Uptake 33 % (23.5-40.5)
[2025-02-15 18:40] LABS: 25-OH Vitamin D, Total 32.8 ng/mL (30-100)
[2025-02-15 18:53] LABS: Thyroid Stimulating Hormone 2.42 uIU/mL (0.465-4.68)
[2025-02-15 19:03] LABS: HIV Combo NEGATIVE (Negative)
[2025-02-15 19:11] LABS: Hepatitis C Ab Qual. W/ RFX NEGATIVE (Negative)
[2025-02-17 10:11] LABS: Hepatitis B Surface Antigen Negative (Negative)
== END 2025-02-15 23:59 | disposition home or self-care (01) ==
LOC: LAB.DROPOF 02-16 09:57
PROVIDERS: PCP Nurse Practitioner Family; Visit Provider Nurse Practitioner Family
DX: E11.65 Type 2 diabetes mellitus with hyperglycemia (principal); E78.5 Hyperlipidemia, unspecified; E03.9 Hypothyroidism, unspecified; J44.9 Chronic obstructive pulmonary disease, unspecified; I10 Essential (primary) hypertension; Z11.4 Encounter for screening for human immunodeficiency virus [HIV]; Z11.59 Encounter for screening for other viral diseases
CPT/HCPCS: 80053; 80061; 82306; 83036; 84436; 84443; 84479; 85025; 86803; 87340; 87389

== ENCOUNTER 2025-02-18 14:59 | Outpatient (CLI) | payer MEDICARE, SELFPAY ==
--- NOTE | 2025-02-18 15:30 | MM_ITS ---
PROCEDURE INFORMATION: Exam: MG Bilateral Screening 3D Mammography Exam date and time: 02/18/2025 3:05 PM Age: 69 years old Clinical indication: Six-month follow-up for probably benign nodular asymmetry in the left anterolateral breast, initiated 01/29/2023. TECHNIQUE: Imaging protocol: Bilateral Screening tomosynthesis and 2D mammography including computer-aided detection (CAD) when performed. COMPARISON: 1. MG MM DIG MAMM DX UNILAT LT CAD 08/17/2024 9:34 AM 2. MG MM DIG MAMM BI DX W/CAD 12/24/2023 1:16 PM 3. MG MM DIG MAMM DX UNILAT LT CAD 02/05/2023 2:36 PM 4. MG MM DIG SCREENING MAMM BI W/CAD 01/29/2023 1:13 PM FINDINGS: MAMMOGRAPHY: Breast composition: There are scattered areas of fibroglandular density. Mass: None. Architectural distortion: None. Calcifications: No suspicious calcifications. Asymmetric density: Stable nodular asymmetries in the left upper outer quadrant middle 3rd since 01/29/2023. Skin thickening: None. Axillary adenopathy: None. IMPRESSION: Stable nodular asymmetries in the left upper outer quadrant middle 3rd since 01/29/2023, which completes a 2 year follow-up cycle, benign-appearing. No mammographic evidence of malignancy. Annual screening is recommended unless otherwise clinically indicated. ASSESSMENT: BI-RADS Category 2: Benign.
== END 2025-02-18 23:59 | disposition home or self-care (01) ==
LOC: RAD 15:00
PROVIDERS: PCP Nurse Practitioner Family; Visit Provider Family Medicine
DX: Z12.31 Encounter for screening mammogram for malignant neoplasm of breast (principal); N63.21 Unspecified lump in the left breast, upper outer quadrant; R92.323 Mammographic fibroglandular density, bilateral breasts
CPT/HCPCS: 77063; 77067